=== PATIENT | male | born 1980 | race Caucasian/White ===

== ENCOUNTER 2021-10-10 06:49 | Emergency (ER) | payer SELFPAY ==
[~2021-10-10] VITALS: Ht 172.7 cm; Wt 113.6 kg
[2021-10-10 07:17] LABS: CREATININE 0.9 mg/dL (0.7-1.3); POTASSIUM 4.3 mmol/L (3.5-5.1)
[2021-10-10 07:33] LABS: HEMATOCRIT 45.5 % (39.0-53.0); HEMOGLOBIN 15.6 g/dL (13.0-17.5); RED BLOOD COUNT 4.67 x10^6/uL (4.30-5.70); RED CELL DISTRIBUTION WIDTH 13.4 % (11.5-14.5); WHITE BLOOD COUNT 9.4 x10^3/uL (4.0-11.0)
--- NOTE | 2021-10-10 07:33 | RAD ---
Study: XR CHEST 1V Indication: Chest pain. Comparison: None. Findings: Upper limits of normal size of the cardiomediastinal silhouette but accentuated by AP technique and l ordotic beam angulation. Symmetric alesia. No confluent airspace infiltrate, pleural effusion or pneumo thorax. Chronic appearing left eighth rib fracture. Age-indeterminate right eighth rib fracture. Impression: 1. Age-indeterminate right eighth rib fracture. A left eighth rib fracture appears chronic. Correlate for any recent trauma. 2. No focal airspace abnormality or pneumothorax. Electronically signed by: WALDO DALTON MD (10/10/2021 7:30 AM) [facility]
--- NOTE | 2021-10-10 09:20 | EKG ---
[facility] [address] [place] [id number] Test Date: 2021-10-10 Test Time: 06:54:37 Pat Name: CAROLINA FRANZ Department: Room: Gender: M Poison Information Specialist: : 1980 Requested By: HECTOR DEAN Order Number: [id number] Reading MD: Barak Echols MD Measurements Intervals [place] Rate: 93 P: -25 CO: 150 QRS: 4 QRSD: 88 T: 14 QT: 356 QTc: 445 Interpretive Statements SINUS RHYTHM Electronically Signed On 10-10-2021 9:20:45 CDT by Barak Echols MD
--- NOTE | 2021-10-10 10:36 | PHYS DOC ---
Past Medical History Past Surgical History: No Surgical History General Adult EDM: Chief Complaint: CHEST PAIN HPI: HPI: 41-year-old male presents with chest pain. Sharp in nature. Localized to the center of his chest. Onset this morning and lasted approximately 5 minutes. No radiation of the pain to the back the shoulders the teeth of the jaw. No aggravating or relieving factors. Chest pain is currently gone. No history of CAD or hypertension diabetes or hyperlipidemia. However he does smoke and is not physically active. Denies any family history of early cardiac disease under the age of 45. Review of Systems: Review of Systems: Constitutional: Denies fever or chills. [] Eyes: Denies change in visual acuity. [] HENT: Denies nasal congestion or sore throat. [] Respiratory: Denies cough or shortness of breath. [] Cardiovascular: Positive for chest pain GI: Denies abdominal pain, nausea, vomiting, bloody stools or diarrhea. [] : Denies dysuria. [] Musculoskeletal: Denies back pain or joint pain. [] Integument: Denies rash. [] Neurologic: Denies headache, focal weakness or sensory changes. [] Endocrine: Denies polyuria or polydipsia. [] Lymphatic: Denies swollen glands. [] Psychiatric: Denies depression or anxiety. [] Heart Score: C/O Chest Pain: Yes HEART Score for Chest Pain: HEART Score for Chest Pain Response (Comments) Value History Slighlty/Non-Suspicious 0 ECG Normal 0 Age < 45 0 Risk Factors No Risk Factors 0 Troponin < Normal Limit 0 Total 0 Risk Factors: Risk Factors: DM, Current or recent (<one month) smoker, HTN, HLP, family history of CAD, obesity. Risk Scores: Score 0 - 3: 2.5% MACE over next 6 weeks - Discharge Home Score 4 - 6: 20.3% MACE over next 6 weeks - Admit for Clinical Observation Score 7 - 10: 72.7% MACE over next 6 weeks - Early Invasive Strategies Physical Exam: PE: Constitutional: Well developed, well nourished, no acute distress, non-toxic appearance. [] HENT: Normocephalic, atraumatic, bilateral external ears normal, oropharynx moist, no oral exudates, nose normal. [] Eyes: PERRLA, EOMI, conjunctiva normal, no discharge. [] Neck: Normal range of motion, no tenderness, supple, no stridor. [] Cardiovascular:Heart rate regular rhythm, no murmur [] Lungs & Thorax: Bilateral breath sounds clear to auscultation [] Abdomen: Bowel sounds normal, soft, no tenderness, no masses, no pulsatile masses. [] Skin: Warm, dry, no erythema, no rash. [] Back: No tenderness, no CVA tenderness. [] Extremities: No tenderness, no cyanosis, no clubbing, ROM intact, no edema. [] Neurologic: Alert and oriented X 3, normal motor function, normal sensory function, no focal deficits noted. [] Psychologic: Affect normal, judgement normal, mood normal. [] Current Patient Data: Labs: Laboratory Tests Test 10/10/21 06:59 10/10/21 09:55 White Blood Count 9.4 x10^3/uL (4.0-11.0) Red Blood Count 4.67 x10^6/uL (4.30-5.70) Hemoglobin 15.6 g/dL (13.0-17.5) Hematocrit 45.5 % (39.0-53.0) Mean Corpuscular Volume 98 fL (79-100) Mean Corpuscular Hemoglobin 34 pg (25-35) Mean Corpuscular Hemoglobin Concent 34 g/dL (31-37) Red Cell Distribution Width 13.4 % (11.5-14.5) Platelet Count 290 x10^3/uL (140-400) D-Dimer (Josselin) < 0.27 ug/mlFEU Sodium Level 138 mmol/L (136-145) Potassium Level 4.3 mmol/L (3.5-5.1) Chloride Level 103 mmol/L (98-107) Carbon Dioxide Level 26 mmol/L (21-32) Anion Gap 9 (6-14) Blood Urea Nitrogen 10 mg/dL (8-26) Creatinine 0.9 mg/dL (0.7-1.3) Estimated GFR (Cockcroft-Gault) 93.0 Glucose Level 104 mg/dL (70-99) H Calcium Level 9.0 mg/dL (8.5-10.1) Troponin I High Sensitivity 7 ng/L (4-75) 6 ng/L (4-75) Laboratory Tests 10/10/21 06:59 Laboratory Tests 10/10/21 06:59 Vital Signs: Vital Signs Date Time Temp Pulse Resp B/P (MAP) Pulse Ox O2 Delivery O2 Flow Rate FiO2 10/10/21 06:55 98.4 94 16 142/99 (113) Room Air 98.4 EKG: EKG: Normal sinus rhythm rate of [address] changes or T wave inversions. [] Radiology/Procedures: Radiology/Procedures: [] Course & Med Decision Making: Course & Med Decision Making Pertinent Labs and Imaging studies reviewed. (See chart for details) I did a 2 troponin rule out and the patient's heart score was 0. Okay for outpatient follow-up with the PCP for outpatient stress testing. The patient states that he will make an appointment. Told him to return if anything changes or worsens. Dragon Disclaimer: Dragon Disclaimer: This electronic medical record was generated, in whole or in part, using a voice recognition dictation system. Departure Departure Impression: Primary Impression: Atypical chest pain Disposition: HOME / SELF CARE / HOMELESS Condition: STABLE Referrals: NO PCP (PCP) Patient Instructions: Chest Pain (Nonspecific), [id number] Additional Instructions: Please follow-up with your primary care physician in 48 hours to arrange outpat ient follow-up stress testing. If your chest pain returns please return to the emergency department. If you begin having any shortness of breath loss of consciousness or sudden dizziness these are also reasons to return immediately. HCETOR DEAN MD October 10, 2021 10:36
[2021-10-10 10:52] VITALS: BP 121/81
== END 2021-10-10 11:23 | disposition home or self-care (01) ==
LOC: ER 06:49
DX: R07.89 Other chest pain (principal)
CPT/HCPCS: 36415; 71045; 80048; 84484; 85027; 85379; 93005; 99285-25